=== PATIENT | female | born 2000 | race Caucasian/White ===

== ENCOUNTER 2021-02-27 20:39 | Emergency (ER) | payer OTHER ==
[~2021-02-27 20:39] MED LIST: BENTYL 20MG TAB20 MG PO; REGLAN10 MG PO
[2021-02-27] MEDS ORDERED: CEPHALEXIN500 M1 PO (23:15)
== END 2021-02-27 23:25 | disposition home or self-care (01) ==
LOC: ER1 20:39
DX: J02.0 Streptococcal pharyngitis (principal); Z88.0 Allergy status to penicillin; Z90.89 Acquired absence of other organs; Z20.822 Contact with and (suspected) exposure to COVID-19
CPT/HCPCS: 0240U; 87081; 87880; 99284